=== PATIENT | male | born 1945 | race American Indian/Alaskan Native ===

== ENCOUNTER 2021-11-22 13:50 | Emergency (ER) | payer MEDICARE ==
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
[2021-11-22] MEDS ORDERED: METOCLOPRAMIDE 10 MG TAB PO ONE (15:31)
[2021-11-22] MEDS ORDERED: ACETAMINOPHEN 325 MG TAB PO ONE (15:31)
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
[2021-11-22] MEDS ORDERED: IBUPROFEN 400 MG TAB PO ONE (18:40)
[2021-11-22 19:06] VITALS: BP 145/68
== END 2021-11-22 19:07 | disposition home or self-care (01) ==
LOC: ED 13:50
DX: S09.90XA Unspecified injury of head, initial encounter (principal); M54.50 Low back pain, unspecified; V49.9XXA Car occupant (driver) (passenger) injured in unspecified traffic accident, initial encounter; Y93.89 Activity, other specified; Y92.89 Other specified places as the place of occurrence of the external cause; Y99.8 Other external cause status
CPT/HCPCS: 70450; 72100; 99284